=== PATIENT | male | born 1975 | race Two or more races ===

== ENCOUNTER 2017-12-15 08:39 | Emergency (ER) | payer SELFPAY ==
[2017-12-15 08:52] VITALS: BP 157/113; BMI 27.4
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
[2017-12-15] MEDS ORDERED: TORADOL 30 MG VIAL IVP ONE (09:10)
[2017-12-15] MEDS ORDERED: TORADOL 30 MG VIAL ONE (09:11)
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
== END 2017-12-15 10:44 | disposition home or self-care (01) ==
LOC: EDSEX 08:46 → ER 08:46
DX: S43.401A Unspecified sprain of right shoulder joint, initial encounter (principal); S16.1XXA Strain of muscle, fascia and tendon at neck level, initial encounter; S13.9XXA Sprain of joints and ligaments of unspecified parts of neck, initial encounter; V87.7XXA Person injured in collision between other specified motor vehicles (traffic), initial encounter; R51 Headache; M19.90 Unspecified osteoarthritis, unspecified site; M54.2 Cervicalgia
CPT/HCPCS: 70450; 71045; 72125; 72170; 73030; 96365; 96374; 99283; J1885